=== PATIENT | female | born 1955 | race Caucasian/White ===

== ENCOUNTER 2020-10-03 10:34 | Outpatient (RCR) | payer MEDICARE, SELFPAY | END 2020-10-31 23:59 | disposition home or self-care (01) | LOC: SPT 10:34 | PROVIDERS: PCP Family Medicine; Referring Provider Nurse Practitioner Family; Visit Provider Nurse Practitioner Family | DX: M54.16 Radiculopathy, lumbar region (principal) | CPT/HCPCS: 97110; 97162 ==

== ENCOUNTER 2020-10-22 15:41 | Outpatient (CLI) | payer MEDICARE, SELFPAY ==
--- NOTE | 2020-10-22 15:52 | MR_ITS ---
WS: [id number] MRI LUMBAR SPINE NONCONTRAST TECHNIQUE: Sagittal T1, T2 and STIR imaging. Axial T1 and T2 imaging. CLINICAL INFORMATION: BACK PAIN, LUMBAR WITH RADICULOPATHY COMPARISON: None. FINDINGS: Mild lumbar curve. No acute compression. Disc space narrowing throughout the lumbar spine worse at L1 -2 and L5-S1. Central disc protrusion in the thoracic spine at T10-11 with moderate central canal yvan nosis and indentation on the lower thoracic cord. Chronic appearing myelomalacia in the thoracic cord at this level. Severe bilateral T10-11 foraminal narrowing. L1-L2: Mild disc bulging with slight effacement of ventral thecal sac. Spinal canal and foramen are p atent. L2-L3: Mild annular bulging with narrowing of the right subarticular recess. Mild right and no signif icant left foraminal narrowing. Mild facet arthropathy. L3-L4: Mild annular bulging. Mild left and no significant right foraminal narrowing. Mild facet arthr opathy. L4-L5: Grade 1 anterolisthesis L4 on L5. Mild disc osteophytic ridging with mild central canal stenos is. Slight impingement on traversing L5 nerve roots. Moderate facet arthropathy. Small right foramina l protrusion with moderate right foraminal narrowing. L5-S1: Mild disc bulging with endplate ridging. Impingement on the exiting L5 nerve root with severe left foraminal narrowing. Mild right foraminal narrowing. Mild central canal stenosis. Impingement tr aversing S1 nerve roots. Moderate facet arthropathy. Bilateral renal cysts and peripelvic renal cysts. Small disc protrusions in the lower cervical and mi d and lower thoracic spine. Thoracic protrusions more prominent at T4-5, T6-7, T7-8, T8-9, and T10-11 MR/MR lumbar spine wo con* [id number] IMPRESSION: 1. Mild lumbar curve. No acute compression. Disc space narrowing worse at L1-2 and L5-S1. 2. Prominent central protrusion T10-11 with moderate central canal stenosis an d indentation on the lower thoracic cord. Chronic appearing myelomalacia in the cord at this level. Thoracic spine can be further evaluated with thoracic spin e MRI. 3. Mild central canal stenosis L4-L5 and L5-S1. 4. Moderate right L4-5 foraminal narrowing impinges the exiting right L4 nerve root. 5. Severe left L5-S1 foraminal narrowing impinges the exiting left L5 nerve ro ot. 6. Moderate facet arthropathy L4-L5 and L5-S1.
== END 2020-10-22 15:42 | disposition home or self-care (01) ==
LOC: RADWPI 15:45
PROVIDERS: PCP Family Medicine; Visit Provider Family Medicine
DX: M54.16 Radiculopathy, lumbar region (principal); M47.816 Spondylosis without myelopathy or radiculopathy, lumbar region; M47.817 Spondylosis without myelopathy or radiculopathy, lumbosacral region; M48.061 Spinal stenosis, lumbar region without neurogenic claudication; M48.07 Spinal stenosis, lumbosacral region; M51.24 Other intervertebral disc displacement, thoracic region
CPT/HCPCS: 72148

== ENCOUNTER 2020-11-01 06:00 | Outpatient (RCR) | payer MEDICARE, SELFPAY | END 2020-12-01 23:59 | disposition home or self-care (01) | LOC: SPT 06:00 | PROVIDERS: PCP Family Medicine; Referring Provider Nurse Practitioner Family; Visit Provider Nurse Practitioner Family | DX: M54.16 Radiculopathy, lumbar region (principal) | CPT/HCPCS: 97110 ==

== ENCOUNTER 2020-12-02 06:00 | Outpatient (RCR) | payer MEDICARE, SELFPAY | END 2020-12-29 23:59 | disposition home or self-care (01) | LOC: SPT 06:00 | PROVIDERS: PCP Family Medicine; Referring Provider Nurse Practitioner Family; Visit Provider Nurse Practitioner Family | DX: M54.16 Radiculopathy, lumbar region (principal) | CPT/HCPCS: 97110 ==

== ENCOUNTER 2020-12-23 07:53 | Outpatient (CLI) | payer MEDICARE, SELFPAY ==
--- NOTE | 2020-12-23 08:14 | MR_ITS ---
WS: [id number] MRI CERVICAL SPINE NONCONTRAST HISTORY: MYELOPATHY COMPARISON: None available. Technique: Multiplanar, multisequence noncontrast imaging of the cervical spine. Straightening of normal curvature of the cervical lordosis. Severe degenerative changes involving the discs and endplates at C5-6, C6-7 and C7-T1. 3 mm retrolisthesis of T1 as compared to C7. Degenerati ve fatty replacement on the endplates of C5-C7. Signal within the cervical cord is normal. Visualized posterior fossa is unremarkable. Craniocervical junction, C1 and C2 relationship, odontoid process and soft tissues are normal. C2-C3: Shallow central disc protrusion and osteophytes. No stenosis. C3-C4: Mild osteophytic ridging and LEFT foraminal narrowing due to osteophytes. Only mild LEFT johanny inal narrowing. C4-C5: Diffuse annular disc bulging and osteophytic ridging. Mild central and bilateral foraminal yvan nosis. C5-C6: Moderate annular disc bulging. Disc and osteophyte disease encroaching upon the thecal sac and also narrowing the foramen. Larger disc osteophyte complex in the RIGHT foramen. There is complete e ffacement of ventral CSF. Moderate central and bilateral foraminal stenosis due to combination of dis c and osteophyte disease. C6-C7: Diffuse annular disc bulging with a central disc protrusion and bilateral disc osteophytes. Mi ld central with moderate bilateral foraminal stenosis. C7-T1: Diffuse annular disc bulging and osteophytosis. Significant narrowing of the foramen bilateral ly, greatest on the LEFT. Exiting nerve roots on the LEFT are being displaced posteriorly by large di sc osteophytes. Mild central with moderate bilateral foraminal stenosis. T1-2, T2-3 and T3-4: Broad-based disc bulging and facet arthritis. No high-grade stenosis. Paraspinal soft tissue are normal. MR/MR cervical spin wo con* [id number] IMPRESSION: 1. Moderate to severe degenerative changes in the cervical spine, most signifi cant at C5-6, C6-7 and C7-T1. 2. Moderate central and bilateral foraminal stenosis at C5-6 due to disc osteo phyte disease. 3. Mild central and moderate bilateral foraminal stenosis at C6-7 and C7-T1 du e to disc and osteophyte disease. Nerve roots on the LEFT at C7-T1 are being di splaced posteriorly by disc and osteophyte disease. 4. Mild central and bilateral foraminal stenosis at C4-5.
--- NOTE | 2020-12-23 08:14 | MR_ITS ---
WS: [id number] MRI THORACIC SPINE noncontrast. HISTORY: MYELOPATHY COMPARISON: None available. TECHNIQUE: Multiplanar sequences are performed in sagittal and axial planes. Mild straightening of the normal thoracic kyphosis. Severe degenerative changes involving the disc an d endplates at multiple levels throughout the thoracic cord. Most significant disease at T4-5, T6-7, T7-8, T8-9, T10-11 and L1-2. There is disc bulging and protrusion upon the cord at several levels, mo st significant at T10-11. Increased T2 signal consistent with myelomalacia in the cord extending over length of 14 mm. T1-2: Diffuse disc bulging. Mild foraminal narrowing. T2-3: Mild annular disc bulging with facet arthritis. Mild RIGHT foraminal stenosis. T3-4: Diffuse annular disc bulging. Broad-based central disc protrusion. Osteophyte encroaches into the thecal sac posteriorly. Moderate to severe RIGHT foraminal stenosis and mild on the LEFT. T4-5: Mild annular disc bulging. Osteophytic ridging and facet joint arthritis. Moderate bilateral f oraminal stenosis. T5-6: No stenosis. T6-7: Moderate size central disc protrusion with osteophytic ridging and disc bulging and facet arth ritis. Very slight contact upon the ventral thecal sac and cord. No definite myelomalacia at this zoila e. Mild central with at least moderate bilateral foraminal stenosis. T7-8: Diffuse annular disc bulging and osteophytic ridging with a central disc protrusion contacting the ventral thoracic cord and effacing CSF. Mild central with moderate bilateral foraminal stenosis. T8-9: Diffuse annular disc bulging with a central disc protrusion contacting the ventral thecal sac. Mild central with moderate to severe bilateral foraminal stenosis. T9-10: Diffuse mild disc bulging and facet arthritis. Mild bilateral foraminal stenosis. T10-11: Moderate size central to RIGHT paracentral disc protrusion. Disc protrusion is contacting th e ventral thecal sac and cord. Myelomalacia is noted at this level. There is moderate central stenosi s with severe bilateral foraminal stenosis. Moderate size RIGHT paracentral disc protrusion. T11-12: Moderate facet arthritis. Mild bilateral foraminal stenosis, LEFT greater than RIGHT. MR/MR thoracic spin wo con* [id number] IMPRESSION: 1. 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 Most significant findings are at T6-7, T7-8, T8-9, T10-11. 2. Focal area of myelomalacia measuring 14 mm at the T10-11 due to disc and os teophyte disease. Disc contact upon the ventral thecal sac. 3. Moderate central with severe bilateral foraminal stenosis and a RIGHT parac entral disc protrusion at T10-11. 4. Disc bulging with protrusions and osteophyte disease contacting the ventral thecal sac and cord at T6-7, T7-8 and T8-9. 5. Moderate to severe RIGHT foraminal stenosis at T3-4. 6. Moderate bilateral foraminal stenosis at T4-5 and T6-7. 7. Mild central with moderate to severe bilateral foraminal stenosis at T8-9.
== END 2020-12-23 07:54 | disposition home or self-care (01) ==
PROVIDERS: PCP Family Medicine; Visit Provider Neurological Surgery
DX: G95.9 Disease of spinal cord, unspecified (principal); M48.04 Spinal stenosis, thoracic region; M51.24 Other intervertebral disc displacement, thoracic region; M25.78 Osteophyte, vertebrae; M48.02 Spinal stenosis, cervical region; M48.03 Spinal stenosis, cervicothoracic region
CPT/HCPCS: 72141; 72146

== ENCOUNTER 2021-01-03 08:20 | Emergency (ER) | payer MEDICARE, SELFPAY ==
[2021-01-03 08:23] VITALS: BP 188/109; PULSE 81; RESP 18; TEMP 36.2; O2SAT 96; BMI 46.3
--- NOTE | 2021-01-03 08:48 | W.ED.EXTPRO ---
HPI - Extremity Problem General: Chief complaint: Extremity Problem,Nontraumatic Stated complaint: SEVERE PAIN IN L LEG Time Seen by Provider: 01/03/21 08:28 History of Present Illness: HPI Narrative: Patient is a 65-year-old female who comes to the ED with left leg pain. Patient says this is been going on for the past week. She has currently been diagnosed with lumbar radiculopathy and recently got an MRI of the spine done in [place] 1 week ago and has not been told the results yet. Patient has an appointment with the neurosurgeon in [place] in January to go over MRI findings. Patient is currently getting physical therapy for lumbar radiculopathy. She describes the left leg pain as burning sensation that starts at the top of her thigh and radiates down to knee. Denies bladder or bowel incontinence and pelvic anesthesia. She denies any acute injury or trauma to cause pain. She currently rates her pain about a 9 out of 10. Patient currently has motorized wheelchair to ambulate. Denies any chest pain, shortness of breath or hemoptysis. Associated symptoms: Deny chest pain, fever(s) or rash Review of Systems Const: Denies: fever(s), chills or fatigue Eyes: Denies: change in vision or eye discomfort ENMT: Denies: throat pain, odynophagia, nasal discharge or nasal congestion Card: Denies: chest pain, palpitations, edema, swelling of feet/ankles, dyspnea on exertion or orthopnea Resp: Denies: dyspnea, productive cough or non-productive cough GI: Denies: abdominal pain, nausea, vomiting, diarrhea, constipation or hematochezia : Denies: flank pain, dysuria or hematuria Musc: Reports: extremity pain (Pain radiating down from top of left leg to the knee.); Denies: neck pain, back pain or extremity swelling Skin/Breast: Denies: rash or new lesions Neuro: Denies: headache(s), numbness in extremities or weakness in extremities Physical Exam Const: COMMON NORMALS: no acute distress, patient oriented x3 and alert GENERAL APPEARANCE: cooperative and comfortable NUTRITIONAL APPEARANCE: obese morbidly obese HENMT: COMMON NORMALS: normocephalic HEAD & SCALP: normocephalic MOUTH: Normal oral and palatal mucosa present THROAT: posterior oropharynx normal and uvula midline Neck/C-Spine: COMMON NORMALS: supple GENERAL: Yes normal visual inspection Resp: COMMON NORMALS: normal respiratory effort, No retractions, No use of accessory muscles and clear to auscultation bilaterally AUSCULTATION: clear to auscultation bilaterally Cardio: COMMON NORMALS: regular rate, regular rhythm, S1 normal heart sound present, S2 normal heart sound present, No gallops present (Cardio), No clicks present (Cardio), No murmurs present (Cardio) and Peripheral pulses 2+ throughout RATE: regular rate RHYTHM: regular rhythm HEART SOUNDS: S1 normal heart sound present and S2 normal heart sound present PERIPHERAL PULSES: Peripheral pulses 2+ throughout GI: COMMON NORMALS: Normal to inspection, nondistended, normoactive bowel sounds present, Soft to palpation, non-tender and no masses PALPATION: Yes Soft to palpation : COMMON NORMALS: Yes no CVA tenderness BLADDER/KIDNEY EXAM: Yes no CVA tenderness Back/Pelvis: COMMON NORMALS: no CVA tenderness LUMBAR SPINE/LOWER BACK: Yes straight leg raise positive left Extremity: COMMON NORMALS: normal to inspection, no calf tenderness and no pedal edema Neuro: COMMON NORMALS: patient oriented x3 and moves all extremities SENSORIUM/ORIENTATION: Yes alert Skin: GENERAL SKIN EXAM: dry skin Course Vital Signs: Vital signs: Vital Signs Temperature 97.1 F L 01/03/21 08:23 Pulse Rate 73 01/03/21 10:02 Respiratory Rate 20 H 01/03/21 10:02 Blood Pressure 148/102 01/03/21 10:02 Pulse Oximetry 94 01/03/21 10:02 MDM - Extremity (Nontraumatic) MDM Narrative: Medical decision making narrative: Patient is a 65-year-old female who comes to the ED with pain in her left leg. She describes pain as burning and radiating down from the upper leg to the knee symptoms started approximately 1 week ago. Denies any injury or trauma. Patient was just diagnosed with lumbar radiculopathy and got an MRI of her spine done in [place] within the last week. She is waiting on those MRI results. She denies any chest pain, shortness of breath, hemoptysis or history of DVT or blood clots. Ultrasound venous duplex of left lower extremity showed no DVTs or clots. Patient was diagnosed with lumbar radiculopathy and given a dose of Toradol and Solu-Medrol here in the ED. She was then sent home with a prescription for a Medrol Dosepak. She has a follow-up appointment with the neurosurgeon in [place] in a month to go over her MRI results. Return to ED precautions given. Patient understood agree with plan. Imaging Data^: US Vascular: Attestation: I personally reviewed and interpreted this imaging study as follows: Radiologist's impression: Ultrasound venous duplex of left lower extremity?prelim report showed no DVTs or blood clots seen. Discharge Plan Discharge Patient Disposition: Home Clinical Impression: Lumbar radiculopathy Condition: Stable Prescriptions: New Medrol (Mike) 4 mg tablets,dose pack See Rx Instructions .ROUTE .COMPLEX Qty: 21 RF: 0 Discharge Orders: Discharge ED (Routine); Ordered 01/03/21 Ordered By: Chinedu Zhou Referrals: Kurt Solomon MD [Primary Care Provider] - Discharge Diet: Regular Discharge Activity: Increase activity as tolerated Patient Instructions: Lumbar Radiculopathy (ED) Activity Restrictions/Additional Instructions: Follow-up with medical provider as directed. Go to your scheduled appointment with neurosurgeon in January to review MRI findings. Take medications as prescribed. Return to the ER or your medical provider if condition worsens. Please read and understand discharge instructions. If any questions, please ask. Coding Level of Care Code ED Mental Health Consultant for Parisa Phillips Exam Comprehensive
--- NOTE | 2021-01-03 08:48 | USCV_ITS ---
Radha Ospina Age: 65 Gender: F : 1955 Exam Date: 01/03/2021 09:22 Ordering Phys: Chinedu Zhou Technologist: Susie Rudd [place] [facility] [place] Indication: LLE PAIN AND SWELLING HISTORY: Lower extremity swelling. Lower extremity pain. PROCEDURES: Venous duplex imaging was performed in only the left lower extremity. The following venous structures were evaluated: common femoral vein, profunda vein, proximal portion of the greater saphenous vein, superficial femoral vein, and the popliteal vein. In addition, the posterior tibial veins were evaluated. Serial compression, augmentation maneuvers, and spectral Doppler flow evaluation were performed. FINDINGS: Normal 2-D Doppler and augmentation and compressibility throughout the lower extremity venous structures. Additional imaging through the proximal calf veins also reveals no thrombus. Limited evaluation of the greater saphenous vein is patent with no thrombus. Examination was technically limited due to body habitus. CONCLUSIONS No DVT left lower extremity. Dr. Ruth Ha DO (Electronically Signed) Final Date: 03 January 2021 13:14 S
[2021-01-03 09:23] VITALS: RESP 20; O2SAT 98
[2021-01-03] MEDS: ketorolac 60 mg/2 mL INJ IM (09:38)
[2021-01-03 10:02] VITALS: BP 148/102; PULSE 73; RESP 20; O2SAT 94
== END 2021-01-03 10:00 | disposition home or self-care (01) ==
PROVIDERS: Emergency Provider Physician Assistant; PCP Family Medicine
DX: M54.16 Radiculopathy, lumbar region (principal); M79.605 Pain in left leg
CPT/HCPCS: 93971; 96372; 99283; J1885; J2930

== ENCOUNTER 2021-01-27 10:44 | Outpatient (CLI) | payer MEDICARE, SELFPAY ==
--- NOTE | 2021-01-27 10:55 | USCV_ITS ---
Radha Ospina Age: 65 Gender: F : 1955 Exam Date: 01/27/2021 11:14 Ordering Phys: Kurt Solomon MD Technologist: YNES Exam Location: [facility] – [place] Indication: PATIENT WITH SWELLING IN LEFT LOWER EXTREMITY PROCEDURES: Venous duplex imaging was performed in only the left lower extremity. The following venous structures were evaluated: common femoral vein, profunda vein, proximal portion of the greater saphenous vein, superficial femoral vein, and the popliteal vein. In addition, the posterior tibial and peroneal trunk were evaluated. Serial compression, augmentation maneuvers, and spectral Doppler flow evaluation were performed. FINDINGS: Normal 2-D Doppler and augmentation and compressibility throughout the lower extremity venous structures. Additional imaging through the proximal calf veins also reveals no thrombus. Limited evaluation of the greater saphenous vein is patent with no thrombus.. Technically difficult study due to patient body habitus. Limited evaluation of posterior tibial veins. CONCLUSIONS No DVT left lower extremity. Limited by body habitus. Dr. Ruth Ha DO (Electronically Signed) Final Date: 27 January 2021 11:30 S
== END 2021-01-27 10:45 | disposition home or self-care (01) ==
LOC: RAD 10:46
PROVIDERS: PCP Family Medicine; Visit Provider Family Medicine
DX: M79.89 Other specified soft tissue disorders (principal)
CPT/HCPCS: 93971

== ENCOUNTER 2021-02-24 07:56 | Outpatient (CLI) | payer MEDICARE, SELFPAY ==
--- NOTE | 2021-02-24 07:59 | MM_ITS ---
WS: [id number] Exam: [id number] Date/Time of Exam: 02/24/2021 8:10 AM Reason For Exam: SCREENING VIEWS: MLO and CC views both breasts. No comparisons. Findings: There was no sign of mass, architectural distortion or suspicious calcification in either breast. Fa tty MM/[id number] Impression: BI-RADS: 2-Benign FOLLOW-UP: 1 Year Follow-up This mammogram was also analyzed by the Computer Aided Detection System R2 Imag e [employer].
== END 2021-02-24 07:57 | disposition home or self-care (01) ==
LOC: RADSHAW 07:58
PROVIDERS: PCP Family Medicine; Visit Provider Family Medicine
DX: Z12.31 Encounter for screening mammogram for malignant neoplasm of breast (principal)
CPT/HCPCS: 77067

== ENCOUNTER → 2021-05-20 14:32 | Outpatient (BNVA) | payer MEDICARE, OTHER, SELFPAY | PROVIDERS: PCP Family Medicine; Referring Provider Family Medicine; Visit Provider Orthopaedic Surgery | DX: M17.0 Bilateral primary osteoarthritis of knee (principal) | CPT/HCPCS: 73560 ==

== ENCOUNTER → 2021-07-24 12:08 | Outpatient (BNVA) | payer MEDICARE, OTHER, SELFPAY | PROVIDERS: PCP Family Medicine; Visit Provider Orthopaedic Surgery | DX: Z01.812 Encounter for preprocedural laboratory examination (principal); Z20.822 Contact with and (suspected) exposure to COVID-19 | CPT/HCPCS: 87635 ==

== ENCOUNTER 2021-07-30 10:57 | Observation (INO) | payer MEDICARE, OTHER, SELFPAY ==
[2021-07-08 10:55] VITALS: BMI 48.0
--- NOTE | 2021-07-08 11:48 | P.ANESASSM_ITS ---
Pre-Anesthetic Assessment Pre-Anesthetic Assessment: Height/Weight: Height 1.63 m Weight 127.006 kg Preop Diagnosis: knee pain Proposed Procedure: Operation Date: 07/30/21 09:45 Proposed Procedures p LEFT Total Knee Arthroplasty 34016 m17.0(Left) - Bhaskar Chaudhari MD Familial anesthetic complications: None Social: Social History: No alcohol and No tobacco Exam: Pre-Anes Outpt Exam: alert, oriented x 3, clear to auscultation bilaterally and regular rate & rhythm Airway: MP: 2 Dentition: Other (missing) Pulmonary: Pulmonary: Sleep apnea (unknown) CV/HEM: CV/HEM: HTN and Murmur Comments: States had echo and her EF is 65%, Denies chest pain, sob, but unable to perform 4 METS d/t knee GI: GI: GERD Metabolic: Metabolic: Morbid obesity Musc/skel: Musc/skel: OA/DJD Anesthetic Plan: ASA status: 3 Anesthesia: Regional (specify below) (spinal + adductor) Risk of > 500 ml blood loss (7ml/kg in children): Yes, adequate IV access and fluids planned Other Pertinent Information: patient states she will try to bring echo report - its from [facility] Cardiac Studies: No Data to Display
[2021-07-30] VITALS (13 sets, daily range): BP systolic 107–174; BP diastolic 63–100; PULSE 67–86; RESP 14–24; TEMP 36.1–36.9; O2SAT 92–97; BMI 55.3
[2021-07-30] MEDS: sodium chloride 0.9% 1,000 ML 30 ML IV (08:34)
--- NOTE | 2021-07-30 08:40 | ANES.PAUD2 ---
Pre-Anesthetic Update Pre-Anesthetic Assessment: Date of Surgery/Procedure: 07/30/21 Preop Diagnosis: knee pain Proposed Procedure: Operation Date: 07/30/21 09:45 Proposed Procedures p LEFT Total Knee Arthroplasty 26175 m17.0(Left) - Bhaskar Chaudhari MD Any changes to Pre-Anesthetic Assessment?: No Last Intake: Intake Last Liquid Date 07/29/21 Last Liquid Time 22:00 Last Solid Date 07/29/21 Last Solid Time 19:00 Vitals: Temperature 98.5 F 07/30/21 08:21 Temperature Source Temporal Artery S can 07/30/21 08:21 Pulse Rate 82 07/30/21 08:21 Pulse Rhythm 07/30/21 08:21 Pulse Strength 3+ Normal 07/30/21 08:21 Respiratory Rate 18 07/30/21 08:21 Blood Pressure 174/89 07/30/21 08:21 Blood Pressure Talia n 117 07/30/21 08:21 Pulse Oximetry 94 07/30/21 08:21 Oxygen Delivery Me thod 07/30/21 08:21 Exam: Pre-Anes Outpt Exam: alert, oriented x 3, clear to auscultation bilaterally and regular rate & rhythm Additional Exam Findings (including area of procedure): murmur Other Pertinent Information: Other Pertinent Information: Patient has spinal cord decompression in march and they performed echo d/t murmur, was told it was mild and no contraindcation to surgery and 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 Cardiac Studies: No Data to Display
--- NOTE | 2021-07-30 09:01 | P.HP_ITS ---
Same Day Surgery H&P Indication for Procedure/HPI DATE OF PROCEDURE: July 30, 2021 CHIEF COMPLAINT/INDICATIONFOR SURGICAL PROCEDURE: Osteoarthritis right knee. Progressive pain and limitation, here for right total knee arthroplasty PREOP DIAGNOSIS: Osteoarthritis left knee PLANNED PROCEDRUE: Operation Date: 07/30/21 09:45 Proposed Procedures p LEFT Total Knee Arthroplasty 02397 m17.0(Left) - Bhaskar Chaudhari MD Medications/Allergies* Home Medications Medication Instructions Recorded Confirmed Type hydrochlorothiazide 50 mg tablet 50 mg PO DAILY 05/20/21 07/30/21 History tizanidine 4 mg capsule 4 mg PO BID 05/20/21 07/30/21 History tramadol 50 mg tablet 50 mg PO DAILY 05/20/21 07/30/21 History ibuprofen 600 mg PO PRN PRN 07/08/21 07/30/21 History Allergies/Adverse Reactions Allergy/AdvReac Type Severity Reaction Status Date / Time naproxen Allergy ADR-Hyperte Verified 05/20/21 14:17 nsion Current Medications: Generic Name Dose Route Start Last Admin Trade Name Freq PRN Reason Stop Dose Admin Sodium Chloride 1,000 mls @ 30 mls/hr 07/30/21 08:15 07/30/21 08:34 Sodium Chloride 0.9% IV 07/31/21 08:14 30 mls/hr .Q24H ALICIA Administration Pertinent Exam Findings alert, oriented x 3, clear to auscultation bilaterally, regular rate & rhythm and operative site marked Recommendations Surgery/Procedure today Coding Level of Care Code Acute Research Group Director for Parisa Phillips
[2021-07-30] MEDS: acetaminophen 500 mg Tablet 1000 MG PO ×2 (09:08→17:11)
[2021-07-30] MEDS: oxyCODONE 20 mg ER (12 HR) Tablet PO (09:09)
--- NOTE | 2021-07-30 09:10 | ANES.PROC ---
Anesthesia Procedures Procedure/Date: 07/30/21 Nerve Block ^: Nerve Block 1: Main Anesthesia: spinal anesthesia block Time Out Performed: Yes Consent: requested by attending/covering physician, from patient, risks and benefits reviewed and patient agrees to proceed Nerve block location: adductor canal (L) Anesthesia monitors applied: pulse oximetry, EKG, BP cuff and oxygen Nerve block position: supine Anesthetic Used: ropivicaine 0.5% and with decadron (4 mg) Amount of anesthesia used (mL): 30 Ultrasound used to: recognize landmarks and visualize and ID femerol nerve Nerve Stimulator Used?: No Interscalene/Femoral BLK: 4 stimuplex 21 g needle used for position and inplane approach and visualize local anesthetic spread Injection: neg aspiration of heme Patient Tolerated Procedure: well Complications: none
[2021-07-30] MEDS: CELEcoxib 100 mg Capsule 400 MG PO (09:12)
[2021-07-30] MEDS: ketorolac 30 mg/mL INJ IM (10:18)
[2021-07-30] MEDS: tranexamic acid 1,000 mg/10mL SDV 1000 MG IRRIGATION (10:18)
[2021-07-30] MEDS: EPINEPHrine 1 mg/mL INJ XX (10:19)
--- NOTE | 2021-07-30 12:02 | XR_ITS ---
WS: [id number] Exam: XR knee LT 1-2V [id number] Date/Time of Exam: 07/30/2021 12:02 PM Reason For Exam: surgery A total knee prosthesis has been placed and appears to be in excellent position. Postoperative change s in the adjacent soft tissues. XR/XR knee LT 1-2V [id number] IMPRESSION: 1. Total knee replacement in excellent position without complication.
--- NOTE | 2021-07-30 12:15 | PM.OP ---
Operative Report Date of procedure: July 30, 2021 Pre-op Diagnosis: Osteoarthritis left knee Post-op diagnosis: same Post-op Findings: Same Procedure Done: Left total knee arthroplasty Implants: [place] total knee arthroplasty components were used includin) Size 5 triathalon posterior stabilized femoral component 2) Size 4 Tritanium tibial component 3) 35 mm /10 mm thickness Tritanium asymetric patella 4) Size 4/11 mm thickness posterior stabilized tibial bearing insert Pathology: none sent Surgeon: Bhaskar Chaudhari Anesthesia: Nerve Block (Spinal, adductor canal block) Estimated blood loss (mL): 300 Complications: none Findings: The patient had severe eburnated bone over the medial femoral condyle, medial tibial plateau, patella and trochlea Condition: stable Disposition: PACU Procedure: The patient was taken to the operating room. Patient was given 1 g of tranexamic acid . The above anesthesia provided by the anesthesia service. A timeout was performed. The patient was prepped and draped in the usual fashion with the lower extremity exposed. A anterior incision was made, midline, from a point proximal to the patella to the distal tibial tubercle. The knee was entered through a medial parapatellar approach. The patella could be displaced laterally and the knee flexed. The patellar fat pad was resected to provide better visibility. Retractors were placed medially and laterally adjacent to the tibial plateau. The femoral canal was drilled in line with the longitudinal axis of the femur. Intramedullary femoral guide for used to make a distal femoral cut in 5 degrees of valgus, resecting 10 mm from the more prominent condyle. An additional 2 mm was taken to assist with regaining full extension of the knee next the extra medullary tibial guide was placed in alignment with the longitudinal axis of the tibia. The cutting guides were set to remove just over 9 mm from the high tibial plateau. The proximal tibia was then cut. The femoral measuring guide was then placed over the distal femur. Rotation was verified checking the relationship of the guide to the condyle and the trochlear groove. The femur was measured and cut for the desired femoral component. The desired tibial baseplate was then chosen. A trial reduction with the femur tibial baseplate and polyethylene was done, assuring that the knee was stable throughout full motion. Ligament balancing involved a release of the deep medial collateral ligament and removal of osteophytes from the medial tibia.The tibia was prepared for the tibial baseplate. Patellar thickness was then measured. The patella was cut removing articular cartilage and prepared for appropriate size patellar button. surfaces were cleaned with a gentamicin/tranexamic acid solution. The femur tibia and patella were then press-fit into place. The posterior capsule and collateral ligaments were then injected with a solution of 100 mL of 0.2% ropivacaine, 1 mL of a 1:1000 epinephrine solution, 30 mg of Toradol, and 1 g of tranexamic acid. final polyethylene component was then snapped into place into the tibia. The extensor retinaculum was closed with a running 1 Stratafix.. The subcutaneous tissues were closed with 2-0 Vicryl and the skin was closed with a running 4-0 Stratafix. The wound was covered with a Dermabond Prinio dressing. It was covered with 4xrs and a compressive Tubigauae was applied. The patient was taken to recovery room in stable condition.
[2021-07-30] MEDS: sodium chloride 0.9% 1,000 ML 100 ML IV (13:01)
--- NOTE | 2021-07-30 13:12 | ANE.PACU2 ---
Inpatient post-anesthesia follow up: Airway intact: Yes Vital signs: Temperature 97.7 F Pulse Rate 77 Respiratory Rate 14 Blood Pressure 151/100 Pulse Oximetry 93 Oxygen Delivery Me thod Room Air Oxygen Flow Rate 5 Fraction of Inspir ed Oxygen Hydration adequate: Yes Nausea and vomiting: No Pain level: 4 Mental status: Baseline
[2021-07-30] MEDS: sennosides-docusate Tablet 2 TAB PO (17:11)
[2021-07-30] MEDS: tizanidine 4 mg Tablet PO (17:11)
[2021-07-30] MEDS: gabapentin 300 mg Capsule PO (17:11)
[2021-07-30] MEDS: CELEcoxib 200 mg Capsule PO (19:58)
[2021-07-31] VITALS (7 sets, daily range): BP systolic 102–162; BP diastolic 63–83; PULSE 81–96; RESP 16–22; TEMP 36.7–36.8; O2SAT 92–96
[2021-07-31] MEDS: acetaminophen 500 mg Tablet 1000 MG PO ×2 (01:47→08:26)
[2021-07-31] MEDS: oxyCODONE 5 mg IR Tab/Cap PO (04:18)
[2021-07-31] MEDS: hydroCHLOROthiazide 25 mg Tablet 50 MG PO (08:26)
[2021-07-31] MEDS: TRAMadol 50 mg Tablet PO (08:26)
[2021-07-31] MEDS: aspirin 325 mg EC Tablet PO (08:26)
[2021-07-31] MEDS: sennosides-docusate Tablet 2 TAB PO (08:26)
[2021-07-31] MEDS: gabapentin 300 mg Capsule PO (08:26)
[2021-07-31] MEDS: CELEcoxib 200 mg Capsule PO (08:27)
[2021-07-31] MEDS: tizanidine 4 mg Tablet PO (08:27)
--- NOTE | 2021-07-31 10:28 | PC.CHAP ---
Pastoral Care Encounter/Spiritual Assessment Type of Contact [] Declined auto tester visit [] Patient/Family/Request visit [] Outpatient visit [] Follow-up visit [] Physician referral [] Code/Alert [x] Routine visit [] Staff referral [] Actively dying [] Patient sleeping [] Family support [] [] Out of room [] Palliative care [] [x] Receiving care in room [] Pre-surgical visit [] Trauma [] Long length of stay [] ICU visit [] Other: Relational/Emotional Strength [x] Patient feels connected with others/family/visitors/staff [] Distress [] Loneliness/isolation [] Abandonment Spirituality of Patient [x] Person of [place] [] Attends Rastafari of their [place] [x] Believes in Prayer [] Reads Bible or Hinduism materials [] There are Spiritual issues to be addressed Service Captain Interventions [x] Prayer [x] Active listening [x] Non-anxious presence [x] Spiritual/emotional support [] Crisis/trauma care [x] Spiritual counseling [] Bereavement support [] Provided bereavement packet [] Provided Bible/devotional materials [] Provided toy/stuffed animal, coloring book to patient or family member [] Provided Communion [] Anointing/[place] [] Salvation [x] Completed spiritual assessment [] Other: Impact on Illness or Injury [] Angry [] Fearful [x] Anxious [] Often cries [] Exhaustion [] Unable to work [] Unable to attend evangelical [] Unable to walk/stand [] Unable to read [] Unable to drive [] Unable to eat/drink [] Unable to sleep [] Unable to be with family [] Patient intubated [] Other: Summary had knee replaced will need some rehab from home has a good attitude in some pain Time spent with patient 10 mins
--- NOTE | 2021-07-31 10:57 | PC.NURSE ---
Patient educated on her discharge instructions. IV removed and replacement ice packs given. Patient verbalized understanding and stated she will get dressed and call her daughter for a ride.
--- NOTE | 2021-07-31 11:31 | PC.OT ---
PATIENT DISCHARGED BEFORE OT EVALUATION COULD BE COMPLETED.
--- NOTE | 2021-07-31 13:17 | P.DS_ITS ---
Discharge Providers Date of Admission: 07/30/21 10:57 Date of Discharge: July 31, 2021 Attending Provider at Admission: Bhaskar Chaudhari MD Attending Provider at Discharge: Bhaskar Chaudhari MD Primary Care Provider: Kurt Solomon MD Diagnoses at Discharge Discharge Diagnosis (1) Osteoarthritis of right knee: Status: Acute (2) Status post right knee replacement: Status: Acute (3) Morbid obesity: Status: Acute Reason for Visit Reason for Visit: right total knee arthroplasty 16509 Hospital Course Hospital Course The patient tolerated surgery well. They remained hemodynamically stable. They was begun on aspirin and foot pump for DVT prophylaxis. The patient was mobilized with therapy beginning the day of surgery and by the first postoperative day independent with the walker. The patient has minimal pain was adequately controlled and they were fully mobile they were discharged home. Physical Exam Narrative: EXAM NARRATIVE: On the day of discharge his knee incision was clean. They had no drainage. There is minimal swelling in the thigh and knee and the calf. No distal neurovascular deficits were noted Discharge Data Data Completed and Pending: Completed Studies During Hospitalization Category Date Time Status XR knee LT 1-2V 7 3560 Routine Exams 07/30/21 12:02 Completed Labs from last 24 hours 07/31/21 02:48 Hgb 12.0 Vitals: Last Vital Signs Temp 98.2 F 07/31/21 10:58 Pulse 91 07/31/21 10:58 Resp 18 07/31/21 10:58 BP 162/80 07/31/21 10:58 Pulse Ox 92 07/31/21 10:58 Discharge Plan Discharge Patient Disposition: Home Condition: Stable Prescriptions: New celecoxib 200 mg Capsule 200 mg PO Q12H 14 Days Qty: 28 RF: 0 acetaminophen 500 mg Tablet 1,000 mg PO Q8H 14 Days Qty: 84 RF: 0 aspirin 325 mg Tablet,Delayed Release (Dr/Ec) 325 mg PO DAILY 30 Days RF: 0 gabapentin 300 mg Capsule 300 mg PO BID 7 Days Qty: 14 RF: 0 oxycodone 5 mg Tablet 5 mg PO Q4H PRN (Reason: Moderate Pain) 7 Days Qty: 30 RF: 0 Continued tramadol 50 mg tablet 50 mg PO DAILY RF: 0 hydrochlorothiazide 50 mg tablet 50 mg PO DAILY RF: 0 tizanidine 4 mg capsule 4 mg PO BID RF: 0 Discontinued mupirocin 2 % ointment 1 applic topical BID Qty: 15 RF: 0 ibuprofen tablet 600 mg PO PRN PRN (Reason: Pain) RF: 0 Discharge Orders: Discharge Order (Routine); Ordered 07/31/21 Ordered By: Bhaskar Chaudhari Referrals: [facility] [Outside] ([facility] will be contacting you about a good time to admit you to [facility]. If you have any questions please call them at [phone].) Bhaskar Chaudhari MD [Physician] - 08/05/21 3:15 pm Discharge Diet: Advance as tolerated Discharge Activity: Limit activity as instructed Patient Instructions: Aspirin (By mouth), Gabapentin (By mouth), Oxycodone, Rapid Release (By mouth), Celecoxib (By mouth), Total Knee Replacement (DC), Opioid Safety Activity Restrictions/Additional Instructions: Okay to shower Keep Tiago wrap in place for swelling. Okay to remove for hygiene. Apply FirstIce up to 20 min/hr for pain and swelling Take Celebrex twice a day for the next 15 days for pain , discontinue other anti-inflammatories Take Neurontin twice a day for 7 days. Take Tylenol 500mg (1-2 tabs) as needed 3 times a day for mild pain take oxycodone for breakthrough pain. Exercises per physical therapy. May weight-bear as tolerated on total knee arthroplasty Discharge Attestations Time Spent in Discharge Care*: other Quality Metrics Clinical Quality Measures During this hospital stay, did patient experience: None Coding Level of Care Code Acute Chg FW DC note Diagnoses Osteoarthritis of right knee M17.11 Status post right knee replacement Z96.651 Morbid obesity E66.01
--- NOTE | 2021-08-01 09:54 | PC.SOCIAL ---
discharge follow up call made, spoke with patient. patient picked up all medications from the pharmacy, she is taking those as directed with pain control. patient is aware to stop taking motrin. patient has follow up appointment with Dr. Chaudhari, 08-05, she has transportation to her appointment. patient is keeping knee elevated but at this time hasn't used ice but ice packs were sent home with patient from the hospital. patient denies any questions or concerns.
== END 2021-07-31 11:20 | disposition home or self-care (01) ==
LOC: MEDSURG 11:10
PROVIDERS: Admitting Provider Orthopaedic Surgery; PCP Family Medicine; Visit Provider Orthopaedic Surgery
PROC: (CPT 27447; principal; 2021-07-30 09:25)
DX: M17.12 Unilateral primary osteoarthritis, left knee (principal); E66.01 Morbid (severe) obesity due to excess calories; Z68.43 Body mass index [BMI] 50.0-59.9, adult; G47.30 Sleep apnea, unspecified; I10 Essential (primary) hypertension; K21.9 Gastro-esophageal reflux disease without esophagitis
CPT/HCPCS: 27447; 36415; 64447; 73560; 76942; 85018; 97116; 97161; C1776; G0378; J0171; J0690; J1100; J1580; J1885; J2250; J2704; J2795; J7030

== ENCOUNTER → 2021-09-09 09:38 | Outpatient (BNVA) | payer MEDICARE, OTHER, SELFPAY | PROVIDERS: PCP Family Medicine; Visit Provider Orthopaedic Surgery | DX: Z01.812 Encounter for preprocedural laboratory examination (principal); Z96.652 Presence of left artificial knee joint; Z20.822 Contact with and (suspected) exposure to COVID-19; Z98.890 Other specified postprocedural states | CPT/HCPCS: 73560; 73565 ==

== ENCOUNTER → 2021-11-04 08:27 | Day surgery (SDC) | payer MEDICARE, OTHER, SELFPAY | PROVIDERS: PCP Family Medicine; Visit Provider Orthopaedic Surgery | DX: Z01.818 Encounter for other preprocedural examination (principal) | CPT/HCPCS: 93005 ==

== ENCOUNTER → 2021-11-04 09:03 | Outpatient (BNVA) | payer MEDICARE, OTHER, SELFPAY | PROVIDERS: PCP Family Medicine; Visit Provider Orthopaedic Surgery | DX: Z01.812 Encounter for preprocedural laboratory examination (principal); Z20.822 Contact with and (suspected) exposure to COVID-19 | CPT/HCPCS: 87635 ==

== ENCOUNTER 2021-11-10 10:25 | Observation (INO) | payer MEDICARE, OTHER, SELFPAY ==
--- NOTE | 2021-11-04 10:25 | ECG_ITS ---
[facility] Test Date: 2021-11-04 Pat Name: Radha Ospina Department: Room: Gender: Female Academic Associate: : [id number] Requested By: Cristi Vargas Order Number: [id number] Mary MD: Cristina Mcgowan M.D. Measurements Intervals Ong Rate: 79 P: 54 NC: 186 QRS: -36 QRSD: 117 T: 21 QT: 366 QTc: 420 Interpretive Statements SINUS RHYTHM LEFT AXIS DEVIATION [QRS AXIS < -30] INCOMPLETE RIGHT BUNDLE BRANCH BLOCK [90+ ms QRS DURATION, TERMINAL R IN V1/V2, 40+ ms S IN I/aVL/V4/V5/V6] SEPTAL MYOCARDIAL INFARCTION , PROBABLY OLD [40+ ms Q WAVE IN V1/V2] No previous ECG available for comparison Electronically Signed On 11-04-2021 13:14:12 PROCESS ENGINEER by Cristina Mcgowan M.D. [id number]
[2021-11-04 10:46] VITALS: BMI 51.5
--- NOTE | 2021-11-04 11:21 | ANES.PREANE2 ---
Pre-Anesthetic Assessment Pre-Anesthetic Assessment: Height/Weight: Height 1.63 m Weight 136.078 kg Preop Diagnosis: Osteoarthritis left knee Proposed Procedure: Operation Date: 11/10/21 07:00 Proposed Procedures p Total Knee Arthroplasty 42598 M17.11(Right) - Bhaskar Chaudhari MD Was Beta Joshua taken within 24 hours: N/A Was Clonidine taken within 24 hours: N/A Social: Social History: No alcohol and No tobacco Exam: Pre-Anes Outpt Exam: alert, oriented x 3, clear to auscultation bilaterally and regular rate & rhythm Airway: Submandibular: WNL Cervical ROM: WNL MP: 2 Dentition: Full CV/HEM: CV/HEM: HTN Metabolic: Metabolic: Morbid obesity Anesthetic Plan: ASA status: 3 Anesthesia: Regional (specify below) Other: SAB with adductor blk Risk of > 500 ml blood loss (7ml/kg in children): No PFSH Anesthesia PFSH: Medical History (Updated 09/13/21 @ 11:18 by Mehdi Christianson MD) Family history of colon cancer in mother Data Anesthesia CBC & Chem 7: 11/04/21 10:35 Cardiac Studies: No Data to Display
[2021-11-04 11:29] LABS: Blood Urea Nitrogen 15 mg/dL (8-23); Calcium 9.3 mg/dL (8.5-10.5); Carbon Dioxide 24 mmol/L (22-29); Chloride 103 mmol/L (98-107); Glomerular Filtration Rate 99.7 mL/min (90-130); Glucose 110 mg/dL (65-115); Osmolality Calculated 287 mOsm/kg (285-295); Sodium 138 mmol/L (136-145)
[2021-11-04 12:38] LABS: Basophils # 0.1 10^3/uL (0.0-0.1); Basophils % 1.5 %; Eosinophils # 0.3 10^3/uL (0.0-0.8); Eosinophils % 8.1 %; Hematocrit 41.8 % (37.0-47.0); Hemoglobin 13.2 g/dL (11.5-15.3); Lymphocytes # 1.1 10^3/uL (0.8-4.8); Lymphocytes % 27.9 %; Mean Corpuscular HGB Conc 31.6 g/dL (30.0-36.0); Mean Corpuscular Hemoglobin 28.6 pg (28.0-34.0); Mean Corpuscular Volume 90.5 fl (81-99); Mean Platelet Volume 10.9 fL (7.4-10.4); Monocytes # 0.5 10^3/uL (0.2-0.9); Monocytes % 11.5 %; Neutrophils # 2.09 10^3/uL (1.8-7.7); Nucleated Red Blood Cells % 0 %; Platelet Count 266 10^3/cmm (130-400); Red Blood Count 4.62 10^6/uL (4.1-5.3); Red Cell Distribution Width 14.5 % (12.1-15.1); White Blood Count 4.1 10^3/uL (4.0-10.0)
[2021-11-10] VITALS (22 sets, daily range): BP systolic 97–173; BP diastolic 55–103; PULSE 75–89; RESP 10–20; TEMP 36.2–36.9; O2SAT 87–98
[2021-11-10] MEDS: acetaminophen 500 mg Tablet 1000 MG PO ×3 (06:20→18:16)
[2021-11-10] MEDS: gabapentin 300 mg Capsule PO ×2 (06:20→18:17)
[2021-11-10] MEDS: oxyCODONE 20 mg ER (12 HR) Tablet PO (06:20)
--- NOTE | 2021-11-10 06:51 | P.ANESUD_ITS ---
Pre-Anesthetic Update Pre-Anesthetic Assessment: Date of Surgery/Procedure: 11/10/21 Preop Melia gnosis: Right knee osteoarthritis Proposed Procedure: Operation Date: 11/10/21 07:00 Proposed Procedures p Total Knee Arthroplasty 64355 M17.11(Right) - Bhaskar Chaudhari MD Any changes to Pre-Anesthetic Assessment?: No Last Intake: Intake Last Liquid Date 11/09/21 Last Liquid Time 21:30 Last Solid Date 11/09/21 Last Solid Time 18:00 Vitals: Temperature 97.4 F L 11/10/21 06:01 Temperature Source Temporal Artery S can 11/10/21 06:01 Pulse Rate 87 11/10/21 06:01 Respiratory Rate 18 11/10/21 06:01 Blood Pressure 173/103 11/10/21 06:01 Blood Pressure Talia n 126 11/10/21 06:01 Pulse Oximetry 93 11/10/21 06:01 Oxygen Delivery Me thod 11/10/21 06:05 Exam: Pre-Anes Outpt Exam: alert, oriented x 3, clear to auscultation bilaterally and regular rate & rhythm Cardiac Studies: No Data to Display
--- NOTE | 2021-11-10 06:51 | ANES.PROC ---
Anesthesia Procedures Procedure/Date: 11/10/21 Nerve Block ^: Nerve Block 1: Main Anesthesia: spinal anesthesia block Time Out Performed: Yes Consent: requested by attending/covering physician, from patient, risks and benefits reviewed and patient agrees to proceed Nerve block location: adductor canal (R) Anesthesia monitors applied: pulse oximetry, EKG, BP cuff and oxygen Nerve block position: supine Anesthetic Used: ropivicaine 0.5% and with decadron (4 mg) Amount of anesthesia used (mL): 30 Ultrasound used to: visualize and ID femerol nerve Nerve Stimulator Used?: No Interscalene/Femoral BLK: 4 stimuplex 21 g needle used for position and inplane approach and no vascular puncture identified Injection: neg aspiration of heme Patient Tolerated Procedure: well Complications: none
--- NOTE | 2021-11-10 07:07 | P.HP_ITS ---
Same Day Surgery H&P Indication for Procedure/HPI DATE OF PROCEDURE: November 10, 2021 CHIEF COMPLAINT/INDICATIONFOR SURGICAL PROCEDURE: Osteoarthritis right knee here for right total knee arthroplasty PREOP DIAGNOSIS: Right knee osteoarthritis PLANNED PROCEDRUE: Operation Date: 11/10/21 07:00 Proposed Procedures p Total Knee Arthroplasty 94550 M17.11(Right) - Bhaskar Chaudhari MD Jeanne is a 66-year-old ambulatory function. She underwent an elective left total knee arthroplasty in July and did very well. She now has significant limitations due to her right knee and is here for right total knee arthroplasty and progressive loss of Medications/Allergies* Home Medications Medication Instructions Recorded Confirmed Type hydrochlorothiazide 50 mg tablet 50 mg PO DAILY PRN 05/20/21 11/04/21 History tizanidine 4 mg capsule 4 mg PO BID PRN 05/20/21 11/04/21 History tramadol 50 mg tablet 50 mg PO DAILY PRN 05/20/21 11/04/21 History acetaminophen 650 mg 650 mg PO Q8H PRN 09/11/21 09/13/21 History tablet,extended release Allergies/Adverse Reactions Allergy/AdvReac Type Severity Reaction Status Date / Time naproxen Allergy ADR-Hyperte Verified 09/13/21 11:16 nsion Pertinent History/Comorbid Conditions* Medical History (Updated 09/13/21 @ 11:18 by Mehdi Christianson MD) Family history of colon cancer in mother Pertinent Exam Findings alert, oriented x 3, clear to auscultation bilaterally, regular rate & rhythm and operative site marked Recommendations Surgery/Procedure today Coding Level of Care Code Acute S[place]gee Tender for Parisa Phillips
[2021-11-10] MEDS: sodium chloride 0.9% 1,000 ML 30 ML IV (07:08)
[2021-11-10] MEDS: CELEcoxib 200 mg Capsule 400 MG PO (07:09)
[2021-11-10] MEDS: tranexamic acid 1,000 mg/10mL SDV 1000 MG IV (07:40)
[2021-11-10] MEDS: ketorolac 30 mg/mL INJ IM (08:07)
[2021-11-10] MEDS: EPINEPHrine 1 mg/mL INJ XX (08:07)
[2021-11-10] MEDS: tranexamic acid 1,000 mg/10mL SDV 1000 MG XX (08:07)
--- NOTE | 2021-11-10 09:35 | XR_ITS ---
WS: [id number] XR knee RT 3V* [id number] REASON FOR EXAM: R TKA FINDINGS: Total right knee arthroplasty. Components of the arthroplasty are in proper position and alignment. Bony fragments are seen adjacent to the lateral aspect of the tibial articular surface. Expected postoperative soft tissue changes. XR/XR knee RT 3V* [id number] IMPRESSION: Total right knee arthroplasty as above.
--- NOTE | 2021-11-10 09:36 | PM.OP ---
Operative Report Date of procedure: November 10, 2021 Pre-op Diagnosis: Right knee osteoarthritis Post-op diagnosis: same Procedure Done: Right total knee arthroplasty Implants: [place] total knee arthroplasty components were used includin) Size 5 triathalon posterior stabilized femoral component 2) Size 5 Tritanium tibial component 3) 38 mm /11 mm thickness [place] asymetric patella 4) Size 5/16 mm thickness posterior stabilized tibial bearing insert Pathology: none sent Surgeon: Bhaskar Chaudhari Anesthesia: General Estimated blood loss (mL): 200 Findings: The patient had severe the patient had severe tricompartmental degenerative disease most pronounced in the medial and patellofemoral compartments. She had significant preoperative stiffness with motion only from approximately 15 to 40 degrees Condition: stable Disposition: PACU Procedure: The patient was taken to the operating room. Patient was given 1 g of tranexamic acid . The above anesthesia provided by the anesthesia service. A timeout was performed. The patient was prepped and draped in the usual fashion with the lower extremity exposed. A anterior incision was made, midline, from a point proximal to the patella to the distal tibial tubercle. The knee was entered through a medial parapatellar approach. The patella could be displaced laterally and the knee flexed. The patellar fat pad was resected to provide better visibility. Release of the superficial medial collateral ligament was accomplished and with progressive release the knee could be brought up into approximately 80 degrees of flexion. Retractors were placed medially and laterally adjacent to the tibial plateau. The femoral canal was drilled in line with the longitudinal axis of the femur. Intramedullary femoral guide for used to make a distal femoral cut in 5 degrees of valgus, resecting 10 mm from the more prominent condyle. Due to the patient's preoperative flexion loss an additional 2 mm of a bone was taken. Next the extra medullary tibial guide was placed in alignment with the longitudinal axis of the tibia. The cutting guides were set to remove just over 9 mm from the high tibial plateau. The proximal tibia was then cut. The femoral measuring guide was then placed over the distal femur. Rotation was verified checking the relationship of the guide to the condyle and the trochlear groove. The femur was measured and cut for the desired femoral component. The desired tibial baseplate was then chosen. A trial reduction with the femur tibial baseplate and polyethylene was done, assuring that the knee was stable throughout full motion. Ligament balancing involved no additional releases other than the initial medial collateral ligament during exposure..The tibia was prepared for the tibial baseplate. Patellar thickness was then measured. The patella was cut removing articular cartilage and prepared for appropriate size patellar button. surfaces were cleaned with a gentamicin solution. The femur tibia and patella were then press-fit into place. The posterior capsule and collateral ligaments were then injected with a solution of 100 mL of 0.2% ropivacaine, 1 mL of a 1:1000 epinephrine solution, 30 mg of Toradol, and 1 g of tranexamic acid. final polyethylene component was then snapped into place into the tibia. The extensor retinaculum was closed with a running 1 Stratafix.. The subcutaneous tissues were closed with 2-0 Vicryl and the skin was closed with a running 4-0 Stratafix. The wound was covered with a Dermabond Prinio dressing. It was covered with 4xrs and a compressive Tubigauae was applied. The patient was taken to recovery room in stable condition.
[2021-11-10] MEDS: CELEcoxib 200 mg Capsule PO ×2 (13:08→23:12)
[2021-11-10] MEDS: sodium chloride 0.9% 1,000 ML 100 ML IV ×2 (13:09→23:19)
--- NOTE | 2021-11-10 14:03 | ANE.PACU2 ---
Inpatient post-anesthesia follow up: Airway intact: Yes Vital signs: Temperature 97.7 F Pulse Rate 75 Respiratory Rate 16 Blood Pressure 134/76 Pulse Oximetry 93 Oxygen Delivery Me thod Nasal Cannula Oxygen Flow Rate 2 Fraction of Inspir ed Oxygen Hydration adequate: Yes Nausea and vomiting: No Pain level: 2 Mental status: Baseline
[2021-11-10] MEDS: oxyCODONE 5 mg IR Tab/Cap PO (23:16)
[2021-11-11] VITALS: BP 124/75; PULSE 75; RESP 20; TEMP 36.9; O2SAT 93
[2021-11-11 03:32] LABS: Hemoglobin 10.6 g/dL (11.5-15.3)
[2021-11-11 04:00] VITALS: BP 126/78; PULSE 73; RESP 20; TEMP 36.4; O2SAT 94
[2021-11-11] MEDS: acetaminophen 500 mg Tablet 1000 MG PO ×2 (04:04→11:49)
[2021-11-11 07:11] VITALS: BP 115/65; PULSE 71; RESP 16; TEMP 36.7; O2SAT 92
--- NOTE | 2021-11-11 07:30 | P.DS_ITS ---
Discharge Providers Date of Admission: 11/10/21 10:25 Date of Discharge: November 11, 2021 Attending Provider at Admission: Bhaskar Chaudhari MD Attending Provider at Discharge: Bhaskar Chaudhari MD Primary Care Provider: Kurt Solomon MD Reason for Visit 2 Reason for Visit: Osteoarthritis of right knee Hospital Course Hospital Course The patient tolerated surgery well. They remained hemodynamically stable. They was begun on aspirin and foot pumps for DVT prophylaxis. The patient was mobilized with therapy beginning the day of surgery and by the first postoperative day independent with the walker. As the pain was adequately controlled and they were fully mobile they were discharged home. Physical Exam Narrative: EXAM NARRATIVE: On the day of discharge the knee incision was clean. There no drainage. There is minimal swelling in the thigh and knee and the calf. No distal neurovascular deficits were noted Urinary Catheter Management^: [place] Latex: Cath Placed During This Visit: yes, but has since been removed by the nurse Reason for Continuing Indwelling Catheter: Required Immobilization for Trauma or Surgery or Anesthesia Urinary Catheter Date of Insertion: 11/10/21 Urinary Catheter Time of Insertion: 07:40 Date Urinary Catheter Removed: 11/11/21 Time Urinary Catheter Discontinued: 06:20 Discharge Data Data Completed and Pending: Completed Studies During Hospitalization Category Date Time Status XR knee RT 3V* [id number] Routine Exams 11/10/21 09:35 Completed Labs from last 24 hours 11/11/21 02:49 Hgb 10.6 L Vitals: Last Vital Signs Temp 98.0 F 11/11/21 07:11 Pulse 71 11/11/21 07:11 Resp 16 11/11/21 07:11 BP 115/65 11/11/21 07:11 Pulse Ox 92 11/11/21 07:11 Discharge Plan Discharge Patient Disposition: Home Condition: Stable Prescriptions: New gabapentin 300 mg Capsule 300 mg PO BID Qty: 7 RF: 0 aspirin 325 mg Tablet,Delayed Release (Dr/Ec) 325 mg PO DAILY Qty: 30 RF: 0 celecoxib 200 mg Capsule 200 mg PO Q12H Qty: 14 RF: 0 Continued tramadol 50 mg tablet 50 mg PO DAILY PRN (Reason: Pain, Mild) RF: 0 hydrochlorothiazide 50 mg tablet 50 mg PO DAILY PRN (Reason: Hypertension) RF: 0 tizanidine 4 mg capsule 4 mg PO BID PRN (Reason: Spasms) RF: 0 acetaminophen 650 mg tablet extended release 650 mg PO Q8H PRN (Reason: Pain) RF: 0 Discharge Orders: Discharge Order (Routine); Ordered 11/11/21 Ordered By: Bhaskar Chaudhari Referrals: [facility] [Outside] Bhaskar Chaudhari MD [Physician] - 1 month Discharge Diet: Advance as tolerated Discharge Activity: Limit activity as instructed Patient Instructions: Opioid Safety Discharge Attestations Time Spent in Discharge Care*: other Quality Metrics Clinical Quality Measures During this hospital stay, did patient experience: None Coding Level of Care Code Acute Chg FW DC note
[2021-11-11] MEDS: gabapentin 300 mg Capsule PO (08:16)
[2021-11-11] MEDS: aspirin 325 mg EC Tablet PO (08:16)
[2021-11-11 11:20] VITALS: BP 114/75; PULSE 76; RESP 16; TEMP 36.7; O2SAT 95
[2021-11-11 11:50] VITALS: RESP 18
[2021-11-11] MEDS: CELEcoxib 200 mg Capsule PO (11:50)
[2021-11-11] MEDS: oxyCODONE 5 mg IR Tab/Cap PO (11:50)
--- NOTE | 2021-11-11 11:57 | PC.NURSE ---
Faxed [facility] to [facility]
[2021-11-11 13:34] VITALS: RESP 18
== END 2021-11-11 12:50 | disposition home or self-care (01) ==
LOC: MEDSURG 10:27
PROVIDERS: Anesthesiology; Admitting Provider Orthopaedic Surgery; PCP Family Medicine; Visit Provider Orthopaedic Surgery
PROC: (CPT 27447; principal; 2021-11-10 07:00)
DX: M17.11 Unilateral primary osteoarthritis, right knee (principal); I10 Essential (primary) hypertension; E66.01 Morbid (severe) obesity due to excess calories; Z68.43 Body mass index [BMI] 50.0-59.9, adult; Z80.0 Family history of malignant neoplasm of digestive organs
CPT/HCPCS: 27447; 36415; 51702; 73562; 80048; 85018; 85025; 96374; 97110; 97161; 97165; 97530; C1776; G0378; J0171; J0690; J1100; J1580; J1885; J2250; J2370; J2405; J2704; J2795; J7030

== ENCOUNTER 2021-11-12 18:12 | Emergency (ER) | payer MEDICARE, OTHER, SELFPAY ==
[2021-11-12 18:43] VITALS: BP 198/103; PULSE 87; RESP 18; TEMP 36.5; O2SAT 96; BMI 51.5
--- NOTE | 2021-11-12 19:30 | ED_ITS ---
HPI - General Adult General: Chief complaint: General Medical Stated complaint: Broke Stiches\Bleeding Time Seen by Provider: 11/12/21 19:30 History of Present Illness: HPI narrative: Mr. Ospina is a 66-year-old lady postop day 2 from right total knee replacement who presents to the emergency department due to incisional bleeding. She reports doing well without changes in health, uncontrolled pain, infectious symptoms, or other significant changes. She got up today to use the bathroom and noted bleeding from her surgical incision. This was nonpulsatile in nature however did bleed for approximately 15 to 20 minutes with direct pressure. Denies associated lightheadedness. Non- smoker and no history of diabetes. Intensity of symptoms is moderate. Course has improved. No other specific changes in health, exacerbating, or relieving factors identified. Onset (ago): hour(s) Location: right and lower extremity Associated symptoms: Reports other Treatments prior to arrival: other Review of Systems General: Reports: 10 or more systems reviewed and unremarkable except in HPI and below PFSH ED PFSH: Medical History Family history of colon cancer in mother Surgical History Status post left knee replacement Social History Smoking and tobacco status: never smoked Physical Exam Const: COMMON NORMALS: alert GENERAL APPEARANCE: cooperative and well developed HENMT: COMMON NORMALS: normocephalic and atraumatic HEAD & SCALP: normocephalic and atraumatic THROAT: posterior oropharynx normal Eye: COMMON NORMALS: conjunctivae normal CONJUNCTIVA: Yes conjunctivae normal SCLERA: sclerae normal Neck/C-Spine: COMMON NORMALS: supple GENERAL: Yes trachea midline Resp: COMMON NORMALS: normal respiratory effort EFFORT & INSPECTION: Yes able to speak in complete sentences Cardio: COMMON NORMALS: regular rate and regular rhythm RATE: regular rate RHYTHM: regular rhythm GI: COMMON NORMALS: Soft to palpation PALPATION: Yes Soft to palpation and No Tenderness to palpation present (GI) PERCUSSION: normal to percussion Extremity: GENERAL: Yes normal exam except as noted and No edema Neuro: COMMON NORMALS: moves all extremities SENSORIUM/ORIENTATION: Yes alert and No Orientation impaired Psych: COMMON NORMALS: mental status grossly normal and Normal thought process present THOUGHT PROCESS: Normal thought process present Skin: NARRATIVE SKIN EXAM: Right lower extremity surgical incision. Operative dressing in place with gauze component under OpSite saturated with blood. Minimal oozing noted with pressure. Course ED course: - Patient was seen and evaluated by me at bedside - Vital signs obtained - Discussed with Dr. Chaudhari, prior dressing removed without complication, no evidence of active hemorrhage or other acute abnormality. Redressed as noted below. - Upon serial reexamination after treatment the patient was improved - Based on patient history, evaluation, labs, and imaging as interpreted the most likely cause of the patient's condition is postoperative bleeding - The results of ED evaluation were discussed with the patient including symptomatic cares (if applicable) including appropriate and responsible use, wound care, knee immobilizer, followup plan, and return precautions. The patient verbalized understanding and felt safe for discharge. - Patient discharged in satisfactory condition. Note: Click bubbles or prepopulated bañuelos in note writing are used for assistance with data collection and billing and are inherently more limited than narrative and other text portions of this note. Please use narrative for additional clinical history and defer to narrative/free test for any case of contradictory information. If information appears in only free text or click bubble it should be considered present or absent as reported. Please contact note junior underwriter for clarifications of clinical information or contradictory information. MDM is a brief summary, contradictory or erroneous seeming information should be clarified and full note should be reviewed. Vital Signs: Vital signs: Vital Signs Temperature 97.7 F 11/12/21 20:51 Pulse Rate 82 11/12/21 20:51 Respiratory Rate 18 11/12/21 20:51 Blood Pressure 167/83 11/12/21 20:51 Pulse Oximetry 97 11/12/21 20:51 MDM - General Adult MDM Narrative: Medical decision making narrative: Postop day 2 from right total knee replacement with postoperative bleeding after movement. Discussed with Dr. Chaudhari OpSite no longer intact as there is some bleeding through it Dressing carefully removed, the underlying skin glue remained intact without displacement. No evidence of infection, no evidence of active hemorrhage though liquid blood is noted Area dabbed using sterile gauze Telfa followed by overlying island dressing followed by overlying gauze and pressure wrap placed Patient to follow-up in clinic with instructions for using knee immobilizer. Medical Records: Attestation: I reviewed the patient's medical records. Lab Data: Attestation: I reviewed the patient's lab results. Discharge Plan Discharge Patient Disposition: Home Clinical Impression: Status post right knee replacement, Post-op bleeding Condition: Stable Prescriptions: No Action tramadol 50 mg tablet 50 mg PO DAILY PRN (Reason: Pain, Mild) RF: 0 hydrochlorothiazide 50 mg tablet 50 mg PO DAILY PRN (Reason: Hypertension) RF: 0 tizanidine 4 mg capsule 4 mg PO BID PRN (Reason: Spasms) RF: 0 (DME) Immobilizer See Rx Instructions .Route .MEDSUPPLY Qty: 1 RF: 0 acetaminophen 650 mg tablet extended release 650 mg PO Q8H PRN (Reason: Pain) RF: 0 gabapentin 300 mg capsule 300 mg PO BID 7 Days Qty: 14 RF: 0 celecoxib 200 mg capsule 200 mg PO Q12H Qty: 14 RF: 0 aspirin 325 mg Tablet,Delayed Release (Dr/Ec) 325 mg PO DAILY Qty: 30 RF: 0 Discharge Orders: Discharge ED (Routine); Ordered 11/12/21 Ordered By: Devon English Referrals: Kurt Solomon MD [Primary Care Provider] - Discharge Diet: Usual diet Discharge Activity: Limit activity as instructed Patient Instructions: Wound Care (General) Activity Restrictions/Additional Instructions: Thank you for visiting the emergency department. You were seen and evaluated for bleeding from your surgical site. No active bleeding was noted, your dressing was changed. Please follow all instructions given by your operating surgeon. Please wear immobilizer until follow-up with Dr. Chaudhari. Return to the emergency department for any signs of infection, recurrent bleeding, or anything else that you are concerned about and feel needs emergency department evaluation. Coding Level of Care Code ED Veterinary Bacteriologist for Parisa Fwbuddy Exam Comprehensive
[2021-11-12 20:48] VITALS: BP 170/85; PULSE 87; RESP 18; TEMP 36.5; O2SAT 96
[2021-11-12 20:51] VITALS: BP 167/83; PULSE 82; RESP 18; TEMP 36.5; O2SAT 97
== END 2021-11-12 20:58 | disposition home or self-care (01) ==
PROVIDERS: Emergency Provider Emergency Medicine; PCP Family Medicine
DX: L76.22 Postprocedural hemorrhage of skin and subcutaneous tissue following other procedure (principal); Z96.651 Presence of right artificial knee joint; Z79.82 Long term (current) use of aspirin
CPT/HCPCS: 99283

== ENCOUNTER 2021-11-14 14:16 | Outpatient (CLI) | payer MEDICARE, OTHER, SELFPAY | END 2021-11-14 14:17 | disposition home or self-care (01) | LOC: SPT 14:17 | PROVIDERS: PCP Family Medicine; Visit Provider Orthopaedic Surgery | DX: Z47.1 Aftercare following joint replacement surgery (principal); Z96.651 Presence of right artificial knee joint | CPT/HCPCS: 97760; L1830 ==

== ENCOUNTER 2021-11-20 11:03 | Outpatient (CLI) | payer MEDICARE, OTHER, SELFPAY ==
[2021-11-20 12:08] LABS: Erythrocyte Sedimentation Rate 57 mm/hr (0-15)
[2021-11-20 12:28] LABS: C Reactive Protein 9.7 mg/L (0.0-4.9)
== END 2021-11-20 11:04 | disposition home or self-care (01) ==
LOC: LAB 11:12
PROVIDERS: PCP Family Medicine; Visit Provider Orthopaedic Surgery
DX: Z96.651 Presence of right artificial knee joint (principal); Z01.812 Encounter for preprocedural laboratory examination; Z20.822 Contact with and (suspected) exposure to COVID-19
CPT/HCPCS: 36415; 85651; 86140; 87635

== ENCOUNTER 2021-11-21 05:50 | Day surgery (SDC) | payer MEDICARE, OTHER, SELFPAY ==
[2021-11-20 15:42] VITALS: BMI 51.5
[2021-11-21] VITALS (7 sets, daily range): BP systolic 146–187; BP diastolic 97–112; PULSE 82–96; RESP 15–20; TEMP 36.2–36.7; O2SAT 88–98
[2021-11-21] MEDS: sodium chloride 0.9% 1,000 ML 30 ML IV (06:17)
--- NOTE | 2021-11-21 06:54 | P.ANESASSM_ITS ---
Pre-Anesthetic Assessment Pre-Anesthetic Assessment: Height/Weight: Height 1.63 m Weight 136.078 kg Temp Pulse Resp BP Pulse Ox 97.2 F L 96 18 169/112 95 11/21/21 06:16 11/21/21 06:16 11/21/21 06:16 11/21/21 06:16 11/21/21 06:16 Preop Diagnosis: Hematoma right knee Proposed Procedure: Operation Date: 11/21/21 07:00 Proposed Procedures p Incision & Drainage Right knee with poly exchange(Right) - Bhaskar Chaudhari MD Was Beta Joshua taken within 24 hours: N/A Was Clonidine taken within 24 hours: N/A Last intake: Intake Last Liquid Date 11/20/21 Last Liquid Time 20:00 Last Solid Date 11/20/21 Last Solid Time 21:00 Social: Social History: No alcohol and No tobacco Exam: Pre-Anes Outpt Exam: alert, oriented x 3, clear to auscultation milagros aterally and regular rate & rhythm Airway: Submandibular: WNL Cervical ROM: WNL MP: 2 Dentition: Full Metabolic: Metabolic: Morbid obesity Musc/skel: Musc/skel: OA/DJD Anesthetic Plan: ASA status: 3 Anesthesia: General Risk of > 500 ml blood loss (7ml/kg in children): No Medications/Allergies Current Medications: Current Medications Generic Name Dose Route Start Last Admin Trade Name Freq PRN Reason Stop Dose Admin Sodium Chloride 1,000 mls @ 30 ml s/hr 11/21/21 06:00 11/21/21 06:17 Sodium Chloride 0.9% IV 11/22/21 05:59 30 mls/hr .Q24H ALICIA Administration PFSH Anesthesia PFSH: Medical History Family history of colon cancer in mother Surgical History Status post left knee replacement Social History Smoking and tobacco status: never smoked Data Anesthesia Cardiac Studies: No Data to Display
--- NOTE | 2021-11-21 07:04 | W.PM.OPSUD ---
Surgery/Procedure H&P Update DATE OF PROCEDURE: November 21, 2021 DATE H&P PERFORMED: 11/20/21 H&P UPDATE INFORMATION: I have reviewed H&P completed within last 30 days PREOP DIAGNOSIS: Hematoma right knee PLANNED PROCEDURE: Operation Date: 11/21/21 07:00 Proposed Procedures p Incision & Drainage Right knee with poly exchange(Right) - Bhaskar Chaudhari MD
[2021-11-21] MEDS: ceFAZolin 1,000 mg SDV 3000 MG IVP (07:58)
[2021-11-21] MEDS: vancomycin 1,000 MG SDV 1000 MG INTRA-ARTI (07:59)
[2021-11-21] MEDS: tranexamic acid 1,000 mg/10mL SDV 1000 MG IV (07:59)
--- NOTE | 2021-11-21 09:23 | PM.OP ---
Operative Report Date of procedure: November 21, 2021 Pre-op Diagnosis: Hematoma right knee Post-op diagnosis: same Post-op Findings: Same Procedure Done: Irrigation and debridement right irrigation and debridement hematoma right knee Implants: [place] size 5, 16mm posterior stabilized tibial insert Pathology: none sent Surgeon: Bhaskar Chaudhari Anesthesia: General Estimated blood loss (mL): 0 Findings: The patient had hematoma extending through the superior retinacular repair. No evidence of active infection was noted. Condition: stable Disposition: PACU Brief History: The patient is a 66-year-old female who underwent right total knee arthroplasty on 11/10/2021 with persistent drainage. She was brought back to the operating room for irrigation debridement, exploration of wound and deep cultures. Procedure: The patient was taken to the operating room and given a general anesthesia. She is prepped and draped in the supine position with the right lower extremity exposed. She is given 1 g of tranexamic acid. Ancef was held until deep cultures were obtained. Her knee incision was opened up proximally and dissection accomplished along the path of the drainage. This brought us down to a 4 cm area of disruption in her superior retinacular repair communicating with the joint. 2 sets of deep knee cultures were taken. I decision was made to proceed with aggressive irrigation and debridement of the knee. All sutures were removed from a retinacular repair. Her tibial insert was removed. The knee was irrigated with aggressively with 6 L of saline and 80mg gentamicin solution.. At no point was any necrotic or infected looking tissue identified. A new 15 mm thickness size 6 posterior stabilized tibial insert was placed. 1 g of vancomycin powder was sprinkled in the medial and lateral gutters and anterior joint. The extensor retinaculum was reapproximated with 1 Ethibond in a running 1 Stratafix suture. The deep tissue was closed with 2-0 Vicryl suture and the more superficial fat closed with 2-0 Stratafix suture. The skin was closed with a running 4-0 Stratafix suture. The skin was closed with a Prineo Dermabond dressing. The incision was covered with sterile 4 x 4's ABD pads Kerlix compressive web roll and Tiago wrap. She is placed in a knee immobilizer. She was extubated taken recovery room in stable condition.
--- NOTE | 2021-11-21 09:31 | P.PCN_ITS ---
PACU note PACU note: VSS, Good respiratory effort, report to GAMING HOST Post-Anesthesia Exam: awake
--- NOTE | 2021-11-21 09:31 | PM.PACU ---
PACU note PACU note: VSS, Good respiratory effort, report to CREDIT VERIFIER Post-Anesthesia Exam: awake
[2021-11-21] MEDS: TRAMadol 50 mg Tablet PO (10:05)
--- NOTE | 2021-11-21 14:33 | ANE.PACU2 ---
Inpatient post-anesthesia follow up: Airway intact: Yes Vital signs: Temperature 98.0 F Pulse Rate 91 Respiratory Rate 18 Blood Pressure 146/99 Pulse Oximetry 96 Oxygen Delivery Me thod Nasal Cannula Oxygen Flow Rate 2 Fraction of Inspir ed Oxygen Hydration adequate: Yes Pain level: 3 Mental status: Baseline
== END 2021-11-21 10:58 | disposition home or self-care (01) ==
PROVIDERS: PCP Family Medicine; Visit Provider Orthopaedic Surgery
PROC: (CPT 27486; principal; 2021-11-21 07:00)
DX: L76.32 Postprocedural hematoma of skin and subcutaneous tissue following other procedure (principal); Z96.651 Presence of right artificial knee joint; Z79.82 Long term (current) use of aspirin; Z80.0 Family history of malignant neoplasm of digestive organs; E66.01 Morbid (severe) obesity due to excess calories; Z68.43 Body mass index [BMI] 50.0-59.9, adult
CPT/HCPCS: 27486; 87070; 87075; 87077; 87186; 87205; C1776; J0330; J0690; J1100; J1580; J2405; J2704; J3010; J3370; J3490; J7030

== ENCOUNTER → 2022-01-13 10:06 | Outpatient (BNVA) | payer MEDICARE, OTHER, SELFPAY | PROVIDERS: PCP Family Medicine; Visit Provider Orthopaedic Surgery | DX: Z96.651 Presence of right artificial knee joint (principal) | CPT/HCPCS: 73560; 73565 ==

== ENCOUNTER → 2022-01-23 10:28 | Outpatient (BNVA) | payer MEDICARE, OTHER, SELFPAY | PROVIDERS: PCP Family Medicine; Visit Provider Surgery | DX: R19.5 Other fecal abnormalities (principal) | CPT/HCPCS: 87635 ==

== ENCOUNTER 2022-01-29 07:47 | Day surgery (SDC) | payer MEDICARE, OTHER, SELFPAY ==
[2022-01-26 10:09] VITALS: BMI 51.5
[2022-01-29 08:41] VITALS: TEMP 36.1
--- NOTE | 2022-01-29 08:45 | P.ANESASSM_ITS ---
Pre-Anesthetic Assessment Height/Weight: Height 1.63 m Weight 136.078 kg Preop Diagnosis: Screening colonoscopy Operation Date: 01/29/22 10:00 Proposed Procedures p Colonoscopy 94133 R19.5(Not Applicable) - Mehdi Christianson MD Familial anesthetic complications: None Was Beta Joshua taken within 24 hours: N/A Was Clonidine taken within 24 hours: N/A Social No alcohol and No tobacco Exam alert, oriented x 3, clear to auscultation bilaterally and regular rate & rhythm Airway Submandibular: within normal limits Cervical ROM: within normal limits Mallampati: Class II Dentition: full Metabolic Morbid Obesity Musc/skel Osteoarthritis/DJD Uses wheelchair b/c weight and knee issues Anesthetic Plan ASA status: 3 Anesthesia: MAC Medications/Allergies Home Medications Medication Instructions Recorded Confirmed Last Taken Type tizanidine 4 mg capsule 4 mg PO BID PRN 05/20/21 01/26/22 01/27/22 History Immobilizer #1 ea 11/14/21 01/13/22 01/27/22 Rx sulfamethoxazole 800 1 tab PO BID #60 tab 11/24/21 01/26/22 01/29/22 06:30 Rx mg-trimethoprim 160 mg tablet (Bactrim DS) ibuprofen-diphenhydramine citrate 1 tab PO BEDTIME 01/26/22 01/26/22 01/27/22 History 200 mg-38 mg tablet (Advil PM) chlorpheniramine maleate 4 mg 4 mg PO Q4H PRN 01/29/22 01/29/22 01/29/22 06:30 History tablet Allergies Allergy/AdvReac Type Severity Reaction Status Date / Time naproxen Allergy ADR-Hyperte Verified 01/26/22 10:06 nsion [facility] Anesthesia Medical History Family history of colon cancer in mother Surgical History Status post left knee replacement Social History Smoking and tobacco status: never smoked Data Anesthesia Cardiac Studies: No Data to Display
--- NOTE | 2022-01-29 09:32 | P.HP_ITS ---
Same Day Surgery H&P Indication for Procedure/HPI DATE OF PROCEDURE: January 29, 2022 CHIEF COMPLAINT/INDICATIONFOR SURGICAL PROCEDURE: Screening colonoscopy PREOP DIAGNOSIS: Screening colonoscopy PLANNED PROCEDURE: Operation Date: 01/29/22 10:00 Proposed Procedures p Colonoscopy 25096 R19.5(Not Applicable) - Mehdi Christianson MD 09/11/2021 This is a pleasant 66 years old female patient.? Reports that she never had a colonoscopy before and no evidence of bleeding per rectum yet she did have occult blood positive in stool.? Gives a history of her mom at the age of 80 had colon cancer.? Patient denies history of nonintentional weight loss. 01/29/22 Patient comes today for screening colonoscopy ROS All systems have been reviewed negative except as per the above or per problem list Medications/Allergies* Home Medications Medication Instructions Recorded Confirmed Type tizanidine 4 mg capsule 4 mg PO BID PRN 05/20/21 01/26/22 History ibuprofen-diphenhydramine citrate 1 tab PO BEDTIME 01/26/22 01/26/22 History 200 mg-38 mg tablet (Advil PM) chlorpheniramine maleate 4 mg 4 mg PO Q4H PRN 01/29/22 01/29/22 History tablet Allergies/Adverse Reactions Allergy/AdvReac Type Severity Reaction Status Date / Time naproxen Allergy ADR-Hyperte Verified 01/29/22 09:33 nsion Pertinent History/Comorbid Conditions* Medical History (Updated 11/20/21 @ 10:31 by Bhaskar Chaudhari MD) Family history of colon cancer in mother Surgical History (Updated 11/20/21 @ 00:01 by ) Status post left knee replacement Social History Smoking and tobacco status: never smoked Pertinent Exam Findings alert, oriented x 3, regular rate & rhythm and procedure specific exam findings (Abdominal examination nontender nondistended soft) Recommendations Surgery/Procedure today (Screening colonoscopy) Coding Level of Care Code Acute Balling Head Tender for Parisa Phillips
[2022-01-29] MEDS: sodium chloride 0.9% 1,000 ML 30 ML IV (09:39)
--- NOTE | 2022-01-29 10:51 | PC.NURSE ---
CUT OFF PTS ARMBAND IN PROCEDURE ROOM, DUE TO RESTRICTION
--- NOTE | 2022-01-29 11:15 | PM.MISC ---
Miscellaneous Note Note: Patient brought to GI suite. IV free flowing. 100 mg lidocaine 100 mg propofol administered w/ no effect. IV found to be infiltrated. 2 attempts at PIV left hand unsuccessful. US guided PIV inserted left forearm using sterile prep and using real time US guidance for vessel selection an 20 g PIV was inserted with real time visualization of needle entry and real time visualization of catheter advancement. Tolerated well.
[2022-01-29 11:29] VITALS: BP 141/74; PULSE 82; RESP 16; TEMP 36.4; O2SAT 95
[2022-01-29 11:42] VITALS: BP 125/71; PULSE 85; RESP 16; O2SAT 94
--- NOTE | 2022-01-29 12:32 | ANE.PACU2 ---
Inpatient post-anesthesia follow up: Airway intact: Yes Vital signs: Temperature 97.6 F Pulse Rate 85 Respiratory Rate 16 Blood Pressure 125/71 Pulse Oximetry 94 Oxygen Delivery Me thod Room Air Oxygen Flow Rate Fraction of Inspir ed Oxygen Hydration adequate: Yes Nausea and vomiting: No Pain level: 1 Mental status: Baseline
== END 2022-01-29 11:53 | disposition home or self-care (01) ==
PROVIDERS: PCP Family Medicine; Visit Provider Surgery
PROC: 0DJD8ZZ Inspection of Lower Intestinal Tract, Via Natural or Artificial Opening Endoscopic (ICD-10-PCS; CPT 45378; principal; 2022-01-29 10:00)
DX: R19.5 Other fecal abnormalities (principal); K63.5 Polyp of colon; D12.8 Benign neoplasm of rectum; K57.30 Diverticulosis of large intestine without perforation or abscess without bleeding; E66.01 Morbid (severe) obesity due to excess calories; Z68.43 Body mass index [BMI] 50.0-59.9, adult; Z99.3 Dependence on wheelchair
CPT/HCPCS: 45380; 45385; 88305; J2704; J7030

== ENCOUNTER → 2022-02-11 09:39 | Outpatient (BNVA) | payer MEDICARE, OTHER, SELFPAY | PROVIDERS: PCP Family Medicine; Visit Provider Surgery | DX: Z09 Encounter for follow-up examination after completed treatment for conditions other than malignant neoplasm (principal); K63.5 Polyp of colon; K57.90 Diverticulosis of intestine, part unspecified, without perforation or abscess without bleeding | CPT/HCPCS: 99213 ==

== ENCOUNTER 2022-11-20 13:57 | Outpatient (CLI) | payer MEDICARE, OTHER, SELFPAY ==
--- NOTE | 2022-11-20 14:08 | XR_ITS ---
WS: [id number] DEXA (DUAL ENERGY X-RAY ABSORPTIOMETRY) Bone mineral density was performed using a [employer] machine. HISTORY: OSTEOPOROSIS SCREENING COMPARISON: None available. Lumbar spine BMD (L1-L4): 1.229 g/cm2 T score: 0.4 Z score: 0.9 Total hip BMD: Left: 0.902 g/cm2. T score: -0.8 Z score: -0.3 Right: 0.864 g/cm2. T score: -1.1 Z score: -0.6 10 year probability of a major osteoporotic fracture is 6.9%. Mild LEFT curvature lumbar spine. XR/XR DEXA axial skeleton* [id number] IMPRESSION: OSTEOPENIA based upon the WHO classification for females.
== END 2022-11-20 13:58 | disposition home or self-care (01) ==
LOC: RAD 14:00
PROVIDERS: PCP Family Medicine; Visit Provider Family Medicine
DX: M81.0 Age-related osteoporosis without current pathological fracture (principal)
CPT/HCPCS: 77080

== ENCOUNTER 2023-11-26 10:04 | Outpatient (CLI) | payer MEDICARE, OTHER, SELFPAY ==
--- NOTE | 2023-11-26 10:07 | MM_ITS ---
WS: [id number] BILATERAL SCREENING DIGITAL TOMOSYNTHESIS MAMMOGRAM WITH CAD HISTORY: SCREENING COMPARISON: 02/24/2021 Bilateral CC and MLO views with tomosynthesis and synthetic mammography submitted. Computer aided det ection analyzed. Breast composition: There are scattered areas of fibroglandular density. No suspicious masses, microc alcifications or architectural distortion. Benign calcification RIGHT breast. IMPRESSION: MM/[place] [id number] BI-RADS: 2-Benign FOLLOW UP: 1 Year Follow-up
== END 2023-11-26 10:05 | disposition home or self-care (01) ==
LOC: RAD 10:05
PROVIDERS: PCP Family Medicine; Visit Provider Family Medicine
DX: Z12.31 Encounter for screening mammogram for malignant neoplasm of breast (principal); R92.323 Mammographic fibroglandular density, bilateral breasts
CPT/HCPCS: 77063; 77067

== ENCOUNTER 2024-11-29 20:00 | Outpatient (CLI) | payer MEDICARE, OTHER, SELFPAY | END 2024-11-29 20:01 | disposition home or self-care (01) | LOC: SLEEP 11-30 00:23 | PROVIDERS: PCP Family Medicine; Visit Provider Family Medicine | DX: G47.33 Obstructive sleep apnea (adult) (pediatric) (principal); G47.36 Sleep related hypoventilation in conditions classified elsewhere | CPT/HCPCS: 95810 ==

== ENCOUNTER 2025-03-20 20:00 | Outpatient (CLI) | payer MEDICARE, OTHER, SELFPAY | END 2025-03-20 20:01 | disposition home or self-care (01) | LOC: SLEEP 23:10 | PROVIDERS: PCP Family Medicine; Referring Provider Family Medicine; Visit Provider Internal Medicine Pulmonary Disease | DX: G47.33 Obstructive sleep apnea (adult) (pediatric) (principal) | CPT/HCPCS: 95811 ==

== ENCOUNTER 2025-03-21 11:22 | Outpatient (CLI) | payer MEDICARE, OTHER, SELFPAY ==
--- NOTE | 2025-03-21 | MM_ITS ---
WS: [id number] BILATERAL 3D TOMOSYNTHESIS DIGITAL SCREENING MAMMOGRAPHY WITH CAD CLINICAL INFORMATION: ANNUAL SCREENING HISTORY: Screening mammogram. No current complaints. COMPARISON: 2023 TECHNIQUE: Bilateral CC and MLO views. FINDINGS: Scattered fibroglandular densities bilaterally. No suspicious focal mass, asymmetry, calcifications, or architectural distortion. No evidence of malignancy. Punctate and lucent centered calcifications. MM/MM scr BI tomosynthesis [id number] IMPRESSION: DENSITY: There are scattered areas of fibroglandular density. BI-RADS: 2 - Benign. FOLLOW UP: 1 Year Follow-up Recommend return to annual screening mammography.
== END 2025-03-21 11:23 | disposition home or self-care (01) ==
PROVIDERS: PCP Family Medicine; Visit Provider Family Medicine
DX: Z12.31 Encounter for screening mammogram for malignant neoplasm of breast (principal); R92.323 Mammographic fibroglandular density, bilateral breasts; R92.1 Mammographic calcification found on diagnostic imaging of breast
CPT/HCPCS: 77063; 77067

== ENCOUNTER 2025-04-30 12:34 | Outpatient (CLI) | payer MEDICARE, OTHER, SELFPAY ==
--- NOTE | 2025-04-30 12:40 | USCV_ITS ---
Radha Ospina Age: 70 Gender: F : 1955 Exam Date: 04/30/2025 12:58 Ordering Phys: Kurt Solomon MD Technologist: [place] [facility] [place]ication: cp sob BP: 106 / 60 HR: 78 Rhythm: Sinus Technical Quality: Adequate MEASUREMENTS (Male / Female) Normal Values 2D ECHO LV Diastolic Diameter PLAX 4.0 cm 4.2 - 5.9 / 3.9 - 5.3 cm IVS Diastolic Thickness 1.5 cm 0.6 - 1.0 / 0.6 - 0.9 cm IVS Systolic Thickness 1.8 cm LVPW Diastolic Thickness 1.4 cm 0.6 - 1.0 / 0.6 - 0.9 cm LVPW Systolic Thickness 1.9 cm LVOT Diameter 2.0 cm LV Ejection Fraction 2D Teich 59.1 % LV Ejection Fraction MOD 4C 55.4 % LV Ejection Fraction MOD 2C 84.0 % LV Ejection Fraction 2C AL 84.8 % LA Diameter 3.3 cm RA Systolic Volume 4C AL 49.7 ml RA Systolic Volume 4C MOD 47.1 ml LA Sys Volume AL 51.0 cm cubed LA Sys Volume Index AL 21.0 cm cubed/m squared Aorta at Sinotubular Diameter 2.6 cm IVC Diameter 2.0 cm M-MODE LA Ao Ratio MM 1.4 AV Cusp Separation MM 2.0 cm DOPPLER AV Peak Velocity 350.0 cm/s LVOT Peak Velocity 105.0 cm/s AV Area Cont Eq vti 1.1 cm squared AV Area Cont Eq pk 1.0 cm squared MV Peak Velocity 115.0 cm/s MV Area PHT 3.3 cm squared Mitral E to A Ratio 0.8 TR Peak Velocity 248.0 cm/s TR Peak Gradient 24.6 mmHg TV Peak E Velocity 94.0 cm/s FINDINGS Left Ventricle Left ventricle is normal in size. LV systolic function is normal with EF of 60-65%. No regional wall motion abnormalities are seen. Grade 1 diastolic dysfunction Right Ventricle Normal in size and function Right Atrium Normal in size Left Atrium Normal in size Mitral Valve Mild mitral annular calcification. Mild mitral regurgitation Aortic Valve Aortic valve is thickened and calcified. Moderate aortic stenosis with aortic valve area 1.11 cm squared and mean gradient of 29 mmHg Tricuspid Valve Insufficient TR jet to evaluate RVSP Pulmonic Valve Not well visualized Pericardium Normal Aorta Normal in size IVC Appears to be normal CONCLUSIONS LV systolic function is normal with EF of 60-65%. Grade 1 diastolic dysfunction. Mild mitral regurgitation Moderate aortic stenosis Karsten Gonzalez MD (Electronically Signed) Final Date: 12 May 2025 20:25 S
== END 2025-04-30 12:35 | disposition home or self-care (01) ==
LOC: RAD 12:35
PROVIDERS: PCP Family Medicine; Visit Provider Family Medicine
DX: R01.1 Cardiac murmur, unspecified (principal); R93.1 Abnormal findings on diagnostic imaging of heart and coronary circulation; I34.81 Nonrheumatic mitral (valve) annulus calcification; I34.0 Nonrheumatic mitral (valve) insufficiency; I35.8 Other nonrheumatic aortic valve disorders; I35.0 Nonrheumatic aortic (valve) stenosis
CPT/HCPCS: 93306

== ENCOUNTER → 2025-07-12 13:11 | Outpatient (BNVA) | payer MEDICARE, OTHER, SELFPAY | PROVIDERS: PCP Family Medicine; Referring Provider Family Medicine; Visit Provider Internal Medicine | DX: I35.0 Nonrheumatic aortic (valve) stenosis (principal); R07.9 Chest pain, unspecified; I45.89 Other specified conduction disorders; R94.31 Abnormal electrocardiogram [ECG] [EKG] | CPT/HCPCS: 93005; 99204 ==